=== PATIENT | female | born 1960 | race Caucasian/White ===

== ENCOUNTER 2024-06-12 18:12 | Emergency (ER) | payer MEDICARE, BC, OTHER ==
[2024-06-12 19:12] LABS: SARS-CoV-2 E Target Positive; SARS-CoV-2 N2 Target Positive; SARS-CoV-2 NAA Rapid Test DETECTED (NotDetected); SARS-CoV-2 RdRP gene Positive
== END 2024-06-12 19:30 | disposition home or self-care (01) ==
LOC: MADERS 18:12
DX: U07.1 COVID-19 (principal)
CPT/HCPCS: 99283; U0002